=== PATIENT | male | born 1950 | race Caucasian/White ===

== ENCOUNTER 2016-10-07 17:24 | Emergency (ER) | payer MEDICAID, MEDICARE, OTHER ==
[~2016-10-07] VITALS: Ht 172.7 cm; Wt 74.8 kg
[2016-10-07] MEDS ORDERED: NKM (17:44)
[2016-10-07 18:21] VITALS: BP 121/77
[2016-10-07] MEDS ORDERED: levETIRAcetam 1,000mg/NS100ml 100 ML IVPB ONE (20:15)
[2016-10-07 20:21] VITALS: BP 130/84
[2016-10-07 20:47] LABS: BASOPHILS % (AUTO) 0.6 % (0.0-2.0); EOSINOPHILS % (AUTO) 0.5 % (0.0-3.0); LYMPHOCYTES % (AUTO) 12.7 % (20.0-45.0); MEAN CORPUSCULAR HEMOGLOBIN 34.7 PG (27.0-31.0); MEAN CORPUSCULAR HGB CONC 35.3 G/DL (32.0-36.0); MEAN CORPUSCULAR VOLUME 98 FL (80-99); MEAN PLATELET VOLUME 7.8 FL (6.5-10.1); NEUTROPHILS % (AUTO) 83.3 % (45.0-75.0); PLATELET COUNT 161 K/UL (150-450); RED BLOOD COUNT 4.31 M/UL (4.70-6.10); RED CELL DISTRIBUTION WIDTH 10.6 % (11.6-14.8); WHITE BLOOD COUNT 10.1 K/UL (4.8-10.8)
[2016-10-07 21:13] LABS: ALANINE AMINOTRANSFERASE 43 U/L (3-41); ALBUMIN/GLOBULIN RATIO 1.7 (1.0-2.7); ANION GAP 16 (5-15); ASPARTATE AMINO TRANSFERASE 41 U/L (5-40); CALCIUM 9.1 mg/dL (8.6-10.2); CARBON DIOXIDE 23 mEQ/L (20-30); CHLORIDE 103 mEQ/L (98-107); GLOMERULAR FILTRATION RATE > 60 mL/min (>60); HEMOLYSIS 19; POTASSIUM 4.1 mEQ/L (3.4-4.9); SODIUM 142 mEQ/L (135-145); TOTAL PROTEIN 6.9 g/dL (6.6-8.7); TROPONIN I < 0.30 ng/mL (<=0.30)
--- NOTE | 2016-10-07 21:43 | Emergency Room Report ---
History of Present Illness General Chief Complaint: Head, Face, Neck Trauma Source: Patient Present Illness HPI This is a 66-year-old male who presented after increased altered level consciousness. The patient was found lying facedown a sidewalk patient presented drinking several beers at a bar. The patient denies any current complaints of pain. He states that he does not recall events. The patient was brought in by EMS. Allergies: Coded Allergies: UNABLE TO ASSESS (Unverified , 10/07/16) Patient History Past Medical History: see triage record Reviewed Nursing Documentation: PMH: Agreed, PSxH: Agreed Nursing Documentation-PMH Past Medical History: No Stated History Review of Systems All Other Systems: limited - by ems Physical Exam Vital Signs Date Time Temp Pulse Resp B/P Pulse Ox O2 Delivery O2 Flow Rate FiO2 10/07/16 17:37 98.1 94 16 130/78 99 Room Air Sp02 EP Interpretation: reviewed, normal General Appearance: normal inspection, well appearing, no apparent distress, alert, other - [id number] Head: atraumatic Eyes: bilateral eye EOMI, bilateral eye PERRL ENT: normal ENT inspection, hearing grossly normal, normal voice Neck: normal inspection, full range of motion, supple, no bony tend Respiratory: normal inspection, lungs clear, normal breath sounds, no respiratory distress, no retraction, no wheezing Cardiovascular #1: regular rate, rhythm, no edema Gastrointestinal: normal inspection, normal bowel sounds, non tender, soft, no guarding, no hernia Genitourinary: no CVA tenderness Musculoskeletal: normal inspection, back normal, normal range of motion Neurologic: normal inspection, alert, responsive, speech normal, other - repetitive questioning Psychiatric: normal inspection, judgement/insight normal, mood/affect normal Skin: other - right frontal soft tissue swelling right eyelid swelling, ptosis Procedures Critical Care Time Critical Care Time Patient had a critical medical condition which untreated could potentially result in life or limb threatening injury. Total critical care time excluding procedures approximately 45 minutes. Medical Decision Making Diagnostic Impression: Primary Impression: Right frontal lobe punctate hemorrhage Additional Impressions: Frontal sinus fracture Orbital roof fracture ER Course Patient's a 66-year-old male who presented after altered mental status.Differential diagnosis included but was not limited to fracture, ischemic stroke, subarachnoid hemorrhage, hypoglycemia, spinal cord injury, neurodegenerative disorder, urinary tract infection, hypoxemia.Because of complexity of patient's case laboratory testing and imaging studies were ordered.CT the head read by radiology showed acute fracture of the right frontal sinus and superior medial or orbital roof of is a tiny focus of pneumocephalus. There is right supraorbital extraconal air and hemorrhage, air fluid level. CT of cervical spine read by radiology showed no gross fracture. The patient was removed c-collar was noted to be nontender and had normal range of motion.CT the head read by radiology showed acute fracture the right frontal sinus and superomedial roof with a tiny focus of pneumocephalus there is a small focus of hemorrhage in the right frontal lobe. The patient was discussed with Dr. Bo trauma surgeon who agreed accept patient in transfer to [facility]. The patient was given IV Keppra for seizure prophylaxis.The patient was noted to be repetitively questioning how he got to the hospital. At the time of transfer patient was noted to be verbal and moving all extremities. A GCS of 14 Labs Test 10/07/16 20:35 White Blood Count 10.1 K/UL (4.8-10.8) Red Blood Count 4.31 M/UL (4.70-6.10) Hemoglobin 15.0 G/DL (14.2-18.0) Hematocrit 42.3 % (42.0-52.0) Mean Corpuscular Volume 98 FL (80-99) Mean Corpuscular Hemoglobin 34.7 PG (27.0-31.0) Mean Corpuscular Hemoglobin Concent 35.3 G/DL (32.0-36.0) Red Cell Distribution Width 10.6 % (11.6-14.8) Platelet Count 161 K/UL (150-450) Mean Platelet Volume 7.8 FL (6.5-10.1) Neutrophils (%) (Auto) 83.3 % (45.0-75.0) Lymphocytes (%) (Auto) 12.7 % (20.0-45.0) Monocytes (%) (Auto) 3.0 % (1.0-10.0) Eosinophils (%) (Auto) 0.5 % (0.0-3.0) Basophils (%) (Auto) 0.6 % (0.0-2.0) Prothrombin Time 10.0 SEC (9.30-11.50) Prothromb Time International Ratio 1.0 (0.9-1.1) Activated Partial Thromboplast Time 23 SEC (23-33) Sodium Level 142 mEQ/L (135-145) Potassium Level 4.1 mEQ/L (3.4-4.9) Chloride Level 103 mEQ/L (98-107) Carbon Dioxide Level 23 mEQ/L (20-30) Anion Gap 16 (5-15) Blood Urea Nitrogen 17 mg/dL (7-23) Creatinine 1.0 mg/dL (0.7-1.2) Estimat Glomerular Filtration Rate > 60 mL/min (>60) Glucose Level 126 mg/dL (74-106) Calcium Level 9.1 mg/dL (8.6-10.2) Total Bilirubin 0.3 mg/dL (0.0-1.2) Aspartate Amino Transf (AST/SGOT) 41 U/L (5-40) Alanine Aminotransferase (ALT/SGPT) 43 U/L (3-41) Alkaline Phosphatase 80 U/L (40-129) Troponin I < 0.30 ng/mL (<=0.30) Total Protein 6.9 g/dL (6.6-8.7) Albumin 4.4 g/dL (3.5-5.2) Globulin 2.5 g/dL Albumin/Globulin Ratio 1.7 (1.0-2.7) Last Vital Signs Date Time Temp Pulse Resp B/P Pulse Ox O2 Delivery O2 Flow Rate FiO2 10/07/16 20:21 97.9 85 18 130/84 100 Room Air Status: unchanged Disposition: XFER SHT-TRM HOSP Condition: Critical Referrals: NOT CHOSEN IPA/,REFERRING (PCP) Greyson Rueda Oct 07, 2016 21:43
[2016-10-07 22:21] VITALS: BP 114/68
[2016-10-07 22:45] VITALS: BP 114/68
--- NOTE | 2016-10-08 08:57 | Diagnostic Imaging Report ---
Indication: PAIN, trauma Technique: Spiral acquisitions obtained through the cervical spine. No IV contrast utilized. Multiplanar reconstructions were generated. Total dose length product 327 mGycm. CTDIvol(s) 14 mGy. Dose reduction achieved using automated exposure control Comparison: None Findings: Bony alignment is normal. Vertebral body heights are preserved. There is degenerative disc narrowing at multiple levels. No acute fractures. No dislocations. No prevertebral soft tissue swelling. At C3-4, C4-5 there is moderate to severe bilateral neural foraminal stenosis, degenerative disc narrowing, and mild spinal stenosis due to posterior osteophytes. At C5-6, there is moderate spinal stenosis due to posterior osteophytes and moderate to severe bilateral neural foraminal stenosis. At C6-7, there is mild bilateral neural foraminal stenosis. At the remaining levels, no significant disc bulge or protrusion, spinal stenosis, or neural frontal stenosis The surrounding soft tissues demonstrate numerous and prominent but not frankly enlarged cervical lymph nodes. Impression: No acute bony trauma Cervical degenerative spondylosis, as detailed on a level by level basis above. This agrees with the preliminary interpretation provided overnight by Dr. Vegas The CT scanner at [facility] is accredited by the [employer] and the scans are performed using protocols designed to limit radiation exposure to as low as reasonably achievable to attain images of sufficient resolution adequate for diagnostic evaluation.
--- NOTE | 2016-10-08 13:32 | Diagnostic Imaging Report ---
Indications: PAIN Technique: Spiral images obtained through the facial bones. No IV contrast utilized. Multiplanar reconstructions were generated.Total dose length product 607 mGycm. CTDIvol(s) 28mGy. Dose reduction achieved using automated exposure control Comparison: None Findings: There is a nondisplaced fracture of the right orbital roof, which extends into the frontal sinus, involving the inner and outer tables. Gas is seen within the retroseptal orbit. Is also is small focus of pneumocephaly seen on the coronal images, image 21 series 6 There is evidence of a small hematoma peripheral to the orbital fat. No significant displacement of the extraocular muscles is noted. The optic globes are intact. There is right supraorbital soft tissue swelling. There is a small air-fluid level within the right frontal sinus. No other fractures. The nasal bone and nasal septum are intact. There is chronic appearing sinus disease within the sphenoid, ethmoid, and left frontal sinuses. Minimal disease is also seen within the right greater than left maxillary sinuses. There is a small right frontal cerebral parenchymal hematoma. This is also described on separate brain CT report. Impression: Positive for minimally displaced right orbital roof fracture, extending into the inner and outer table of the right frontal sinus. Resultant small amount of presumed blood within the right frontal sinus. Small superior orbital peripheral hematoma, surrounding the orbital fat and extraocular muscles. Extraconal gas and small focus of pneumocephalus also demonstrated Small cerebral intraparenchymal hematoma, as described on brain CT report Chronic sinus disease, as described This agrees with the preliminary interpretation provided overnight by Dr. Vegas The CT scanner at [facility] is accredited by the [employer] and the scans are performed using protocols designed to limit radiation exposure to as low as reasonably achievable to attain images of sufficient resolution adequate for diagnostic evaluation.
--- NOTE | 2016-10-08 13:32 | Diagnostic Imaging Report ---
Indication: PAIN Technique: spiral acquisitions obtained through the brain. Angled axial and coronal 5 x 5 mm slices were reconstructed. No IV contrast utilized. Radiation dose was minimized using automated exposure control Total dose length product 1404 mGycm. CTDIvol(s) 70 mGy Comparison: none FINDINGS: There is bilateral ethmoid and maxillary sinus disease. There is a 6 mm focus of acute intraparenchymal hemorrhage in the right parasagittal frontal the right junction. This does not result in any mass effect. It does demonstrate minimal surrounding edema. There is right supraorbital scalp soft tissue swelling and evidence of right orbital trauma. No mass effect or midline shift. There is age-related enlargement of the ventricles and extra axial CSF spaces. There is periventricular deep white matter ischemic change. Normal centeno-white differentiation. Visualized orbits are unremarkable. Visualized sinuses are unremarkable. Intact calvarium. IMPRESSION: Evidence of significant right orbital trauma-please refer to separate maxillofacial CT report 6 mm acute intraparenchymal hemorrhage in the right frontal lobe. This does not result in any significant mass effect. Other chronic and age-related changes, as described. This agrees with the preliminary interpretation provided overnight by Dr. Vegas The CT scanner at [facility] is accredited by the [employer] and the scans are performed using protocols designed to limit radiation exposure to as low as reasonably achievable to attain images of sufficient resolution adequate for diagnostic evaluation
== END 2016-10-07 22:45 | disposition short-term general hospital (02) ==
LOC: EDBD 17:24 → EDUNIT# 17:24 → EMR 18:42
DX: S02.19XA Other fracture of base of skull, initial encounter for closed fracture (principal); I61.1 Nontraumatic intracerebral hemorrhage in hemisphere, cortical; F10.10 Alcohol abuse, uncomplicated; X58.XXXA Exposure to other specified factors, initial encounter; Y92.480 Sidewalk as the place of occurrence of the external cause
CPT/HCPCS: 36415; 70450; 70486; 72125; 80053; 84484; 85025; 85610; 85730; 96374